=== PATIENT | female | born 1990 | race Caucasian/White ===

== ENCOUNTER 2025-02-11 19:22 | Emergency (ER) | payer BC, SELFPAY ==
[2025-02-11 19:38] VITALS: BP 162/107; PULSE 94; RESP 16; TEMP 36.8; O2SAT 98
--- NOTE | 2025-02-11 20:42 | ED.DENTAL ---
HPI - Dental/Oral General Chief complaint: Dental/Oral Stated complaint: missing tooth/facial injury Time Seen by Provider: 02/11/25 20:09 History of Present Illness HPI Narrative: 34-year-old female presenting with dental fracture and dental avulsion. Patient was playing on a seesaw when it hit her on the lower jaw and she lost her left upper tooth 9. With fractures of tooth 8 and 10. This occurred approximately 1 hour prior to arrival and she was able to retrieve the tooth and brought with her. No loss of consciousness. No other traumatic injuries. She was otherwise in her normal state of health. She has a dentist that she is already texted and will have an appointment tomorrow morning with. Complaint: tooth injury Teeth map:  1. Complete avulsion 2. chip fx 3. chip fx 4. small superficial lac Related Data Home Medications ?Medication ?Instructions ?Recorded ?Confirmed ?Last Taken ?Type hydrochlorothiazide 12.5 mg tablet 12.5 mg PO DAILY 02/11/25 02/11/25 Unknown History Allergies Allergy/AdvReac Type Severity Reaction Status Date / Time No Known Drug Allergies Allergy Intermediate Unknown Verified 02/11/25 19:40 Review of Systems Review of Systems: As reviewed above in HPI Exam Narrative: GENERAL: [Well-appearing, well-nourished, and in no acute distress.] HEAD: [Normocephalic, atraumatic.] EYES: [PERRLA and EOMI.] ENT: Complete avulsion of tooth 9, chip fracture of tooth 8 and 10, small superficial laceration to the inferior lower lip without needing repair. Minor bleeding from the gums of previous site tooth 9. The avulsed tooth appears intact with small crown fracture but otherwise root is intact without any disruption in the structure or obvious disruption of nerve endings. NECK: Supple. CHEST: No respiratory distress EXTREMITIES: Normal range of motion. [No edema.] SKIN: Warm, dry, no rash. NEURO: [No focal deficits]. Alert and oriented [x3.] PSYCH: [Normal mood and affect.] Course Vital Signs Vital signs: Vital Signs Temperature 36.8 C 02/11/25 19:38 Pulse Rate 94 02/11/25 19:38 Respiratory Rate 16 02/11/25 19:38 Blood Pressure 162/107 H 02/11/25 19:38 Pulse Oximetry 98 02/11/25 19:38 Oxygen Delivery Room Air 02/11/25 19:38 Temperature 36.8 C 02/11/25 19:38 Pulse Rate 94 02/11/25 19:38 Respiratory Rate 16 02/11/25 19:38 Blood Pressure 162/107 H 02/11/25 19:38 Pulse Oximetry 98 02/11/25 19:38 Oxygen Delivery Room Air 02/11/25 19:38 Procedures Orthopedic Fracture Reduction Fracture #1: Fracture Reduction date: 02/11/25 Fracture Reduction time: 20:20 Time Out Performed: Yes Side: left Fracture Reduction Location: other (Dental fracture and avulsion of tooth 9) Analgesia: none Pre-Procedure Neuro Vascular Exam: normal Technique: direct manipulation Post-reduction neuro exam: intact Post-reduction vascular exam: intact Splint Applied: No Patient Tolerated Procedure: well Additional Comments: Tooth was held at the crown, copious irrigation of the periodontal tissues, root appears intact without any fracture. Reimplanted with direct manipulation without difficulty with good anatomic alignment. Tolerated well without complication, bleeding controlled. MDM - Dental/Oral MDM Narrative Medical decision making narrative: 34-year-old female presenting with dental fracture and dental avulsion. Patient was playing on a seesaw when it hit her on the lower jaw and she lost her left upper tooth 9. With fractures of tooth 8 and 10. This occurred approximately 1 hour prior to arrival and she was able to retrieve the tooth and brought with her. No loss of consciousness. No other traumatic injuries. She was otherwise in her normal state of health. She has a dentist that she is already texted and will have an appointment tomorrow morning with. Complete avulsion of tooth 9, chip fracture of tooth 8 and 10, small superficial laceration to the inferior lower lip without needing repair. Minor bleeding from the gums of previous site tooth 9. The avulsed tooth appears intact with small crown fracture but otherwise root is intact without any disruption in the structure or obvious disruption of nerve endings. Given patient's timeline of events she is a good candidate for direct reimplantation here. Copious irrigation of the tooth and route which was held by the crown and under sterile saline was conducted with good cleaning. Periodontal tissues appear intact. Patient tolerated reimplantation successfully and did not have any complications. Discussed next steps including contact with her dentist for appointment tomorrow morning, antibiotic prophylaxis for 7 days of doxycycline, pain control medications and a tetanus update. Patient's questions were answered she was safe for discharge home at this time. Medical Records Attestation: I reviewed the patient's medical records. Discharge Plan Discharge Clinical Impression: Avulsed tooth, Fracture of tooth Patient Disposition: Home Condition: Stable Instructions: Antibiotic Form, Acute Dental Trauma (ED) Additional Instructions: We have reimplanted your tooth here but you do need to take antibiotics for approximately 7 days as well as pain control medications to help this heal. Call your dentist in the morning for emergent follow-up. If tooth falls out again rinse it under normal saline and hold it by the crown and do not touch the root with the nerve endings are. Reimplantation success decreases with time outside of the mouth. Follow-up with dentistry, return with any emergencies. Patient Language: [place] Prescriptions: New doxycycline hyclate 100 mg capsule 100 mg PO BID 7 Days Qty: 14 0RF oxycodone 5 mg tablet 5 mg PO Q8H PRN (Reason: pain) Qty: 10 0RF oxycodone 5 mg tablet 5 mg PO Q8H PRN (Reason: pain) Qty: 10 0RF No Action hydrochlorothiazide 12.5 mg tablet 12.5 mg PO DAILY Follow-up/Referrals: Randy,Baldev Szymanski MD [Primary Care Provider] - Time of Disposition: 20:56
--- OUTSIDE RECORDS SUMMARY | 2025-02-11 20:47 | XMS_ITS | Clinical Summary ---
Author Organization [facility] Address [address] [place] [address] Care Team Providers Care Clinical Documentation Nurse Name Role Phone Baldev Padilla MD Primary Care Provider [phone] Allergies Active Allergy Reactions Criticality Noted Date Comments Sulfa (Sulfonamide Antibiotics) Anaphylaxis High Medications irbesartan (AVAPRO) 75 mg tabletIndications :Essential hypertension Take 1 tablet (75 mg total) by mouth daily 90 tablet 2 09/08/2024 Active scopolamine 1 mg over 3 days patch [address] 1 patch on the skin every third day as needed (nausea) for 72 hours 4 patch 11/02/2024 Active Active Problems Problem Noted Date Diagnosed Date Attention deficit disorder (ADD) in adult 2016 Immunizations Immunization Administration Dates Next Due DTP 08/19/1993, 0,02/26/1989,01/01,1988 Hep B, Adolescent or Pediatric 10/28/1998,1997,04/01/1998 HiB 04/04/1990 Influenza, Quadrivalent, Josiane l Culture-based MDCK, Preservative Free, Antibiotic Free, Intramuscular 03/20/2020,04/03/2019 Influenza, Quadrivalent, Spl it, Intramuscular 05/05/2017 Influenza, Quadrivalent, Spl it, Preservative Free, Intramuscular 06/17/2021 Influenza, Trivalent, Preser vative Free, Intramuscular 05/31/2016 Influenza, Unspecified 05/30/2024(Deferr ed: Patient Refused),04/04/2023(Deferred: Patient decision),04/04/2023(Deferred: Patient decision),04/04/2022(Deferred: Patient Refused) MMR 08/19/1993,12/08/1989 OPV 08/19/1993, 0,01/01/1989,10/30 Social History Tobacco Use Types Packs/Day Years Used Date Smoking Tobacco: Every Day Cigarettes 0.8 20 Smokeless Tobacco: Never Tobacco Cessation:Ready to Q uit: No AUDIT-C Answer Date Recorded Q1: How often do you have a drink containing alc ohol? Monthly or less 03/08/2024 Q2: How many drinks containi ng alcohol do you have on a typical day when you are drinking? 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 Gender Identity Not on file Sexual Orientation Not on file Obstetrics History Last Filed Vital Signs Vital Sign Reading Time Taken Comments Blood Pressure 128/82 09/08/2024 9:07 AM NEWSPAPER MANAGER Pulse 85 09/08/2024 9:07 AM NEWSPAPER MANAGER Temperature 36.2 C (97.2 F) 09/08/2024 9:07 AM NEWSPAPER MANAGER Respiratory Rate 18 09/08/2024 9:07 AM NEWSPAPER MANAGER Oxygen Saturation 99% 09/08/2024 9:07 AM NEWSPAPER MANAGER Inhaled Oxygen Concentration - - Weight 78.1 kg (172 lb 1.6 oz) 09/08/2024 9:07 A M NEWSPAPER MANAGER Height 170.2 cm (5' 7) 09/08/2024 9:07 AM NEWSPAPER MANAGER Body Mass Index 26.95 09/08/2024 9:07 AM NEWSPAPER MANAGER Plan of Treatment Health Maintenance Due Date Last Done Comments Cervical Cancer Screening 1988 Hepatitis C Screening 1988 DTaP/Tdap/Td Vaccine (6 - Tdap) 1999 08/19/1993, 12/07/1989, 02/26/1989, Additional history exists Varicella Vaccines (1 of 2 - 13+ 2-dose series) 2001 Pneumococcal vaccine <65 (1 of 2 - PCV) 2007 HPV Vaccines (1 - 3-dose SCD M series) 2015 Covid-19 Vaccine (4 - 2023-2 5 season) 2024 06/17/2021, 09/24/2020, 08/27/2020 Depression Screening 03/03/2025 03/03/2024, 07/14/19 23 Influenza Vaccine (#1) 2025 , 03/20/2020, 04/03/2019, Additional history exists Regular Well Visit/Exam 18-64 04/05/2025 04/05/2024 Hepatitis B Screening Completed 10/28/1998 , 05/13/1998, 04/01/1998 Insurance Virtual Web [place] Virtual Web [place] Care Teams Clinical Documentation Nurse Relationship Specialty Start Date End Date Baldev Padilla MD PCP - General Family Medicine 09/12/24
--- OUTSIDE RECORDS SUMMARY | 2025-02-11 20:47 | XMS_ITS | Clinical Summary ---
Author Organization 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 Gender Identity Not on file Sexual Orientation Not on file Plan of Treatment Health Maintenance Due Date Last Done Comments Hepatitis C Virus (HCV) Screening 1988 TdaP Immunization 1988 Pap Smear 2009 Human Papillomavirus (HPV) Immunization (1 - 3-dose SCDM series) 2015 Cervical Cancer Screening (CCS) 2018 HPV/Cotest 2018 SARS-COV-2 Immunization ( season) 2024 Influenza Immunization (#1) 03/05/202503/05, 04/03/2019, 05/31/2016 Respiratory Syncytial Virus (RSV) Immunization (Adult) (1 - 1-dose 75+ series) 2063 DTaP/Tdap/Td Immunization Discontinued 1993, 12/07/1989, 02/26/1989, Additional history exists Hepatitis B Immunization Completed 999, 05/13/1998, 04/01/1998 Meningococcal Immunization (ACWY) Aged Out No longer eligible based on patient's age to complete this topic Pneumococcal Immunization Combined Aged Out No longer eligible based on patient's age to complete this topic Rotavirus Immunization Aged Out No lo nger eligible based on patient's age to complete this topic
[2025-02-11] MEDS: DOXYCYCLINE HYCLATE 100 MG TABLET PO (21:05)
[2025-02-11] MEDS: TETANUS,DIPHTHERIA,AC PERTUSSIS ADULT (0.5 ML) BOOSTRIX IM (21:10)
[2025-02-11] MEDS: oxyCODONE HCL (*CRX) 5 MG TAB IR PO (21:12)
== END 2025-02-11 21:18 | disposition home or self-care (01) ==
PROVIDERS: Emergency Provider Student in an Organized Health Care Education/Training Program; PCP Family Medicine
DX: S02.5XXA Fracture of tooth (traumatic), initial encounter for closed fracture (principal); S03.2XXA Dislocation of tooth, initial encounter; W09.8XXA Fall on or from other playground equipment, initial encounter; Z23 Encounter for immunization
CPT/HCPCS: 41899; 90471; 90715; 99285; A9270